=== PATIENT | male | born 1970 | race African-American/Black ===

== ENCOUNTER 2022-11-26 09:25 | Day surgery (SDC) | payer OTHER ==
[2022-10-25 16:17] VITALS: BMI 27.2
[2022-11-26 10:51] VITALS: BP 137/87; PULSE 93; RESP 17; TEMP 97.4
== END 2022-11-26 12:03 | disposition home or self-care (01) ==
LOC: FASU 09:25
PROVIDERS: ATTEND Orthopaedic Surgery
PROC: 0RNJ4ZZ Release Right Shoulder Joint, Percutaneous Endoscopic Approach (ICD-10-PCS; principal; 2022-11-26)
DX: Z53.8 Procedure and treatment not carried out for other reasons (principal)

== ENCOUNTER 2022-11-29 09:31 | Day surgery (SDC) | payer OTHER ==
[2022-11-29 10:04] VITALS: BMI 27.2
[2022-11-29] MEDS ORDERED: LIDOCAINE HCL/PF 2% SDV 5ML VIAL ONE (10:50)
[2022-11-29] MEDS ORDERED: ceFAZolin SODIUM 1 GM VIAL ONE (10:50)
[2022-11-29] MEDS ORDERED: ONDANSETRON 4 MG/2 ML VIAL ONE (10:50)
[2022-11-29] MEDS ORDERED: DEXAMETHASONE SOD PHOSPHATE 4 MG/1 ML VIAL ONE (10:50)
[2022-11-29] MEDS ORDERED: PROPOFOL 20 ML ONE ×6 (10:50→13:56)
[2022-11-29] MEDS ORDERED: MIDAZOLAM HCL 2 MG/2 ML SINGLE DOSE VIAL ONE (10:50)
[2022-11-29] MEDS ORDERED: ROPIVACAINE HCL 0.5% 30ML VIAL ONE (11:45)
[2022-11-29] MEDS ORDERED: ONDANSETRON 4 MG/2 ML VIAL IVPUSH PRN (14:29)
[2022-11-29] MEDS ORDERED: oxyCODONE HCL 5 MG TABLET PO PRN ×2 (14:29)
[2022-11-29] MEDS ORDERED: LACTATED RINGERS SOLUTION 1,000 ML IV SCH (14:30)
[2022-11-29] MEDS ORDERED: KETOROLAC TROMETHAMINE 30 MG/1 ML VIAL IVPUSH PRN (14:31)
[2022-11-29] MEDS ORDERED: ACETAMINOPHEN 1000 MG/100 ML BAG IVPB ONE (14:31)
[2022-11-29 16:28] VITALS: BP 140/86; PULSE 75
[2022-11-29 16:53] VITALS: RESP 18; TEMP 97.4
== END 2022-11-29 16:53 | disposition home or self-care (01) ==
LOC: FASU 09:31
PROVIDERS: ATTEND Orthopaedic Surgery
PROC: 0LS34ZZ Reposition Right Upper Arm Tendon, Percutaneous Endoscopic Approach (ICD-10-PCS; principal; 2022-11-29 12:39)
PROC: 0RNJ4ZZ Release Right Shoulder Joint, Percutaneous Endoscopic Approach (ICD-10-PCS; 2022-11-29 12:39)
DX: S46.011D Strain of muscle(s) and tendon(s) of the rotator cuff of right shoulder, subsequent encounter (principal); M75.21 Bicipital tendinitis, right shoulder; M75.51 Bursitis of right shoulder; M65.811 Other synovitis and tenosynovitis, right shoulder; S43.431D Superior glenoid labrum lesion of right shoulder, subsequent encounter; M75.01 Adhesive capsulitis of right shoulder; X58.XXXD Exposure to other specified factors, subsequent encounter
CPT/HCPCS: 82962; 88304-TC; 94760; C1713